=== PATIENT | female | born 1985 | race Caucasian/White ===

== ENCOUNTER 2022-10-05 12:45 | Outpatient (CLI) | payer OTHER | END 2022-10-05 13:36 | disposition home or self-care (01) | LOC: NST 12:45 | PROVIDERS: ATTEND Obstetrics & Gynecology Gynecology | DX: Z34.83 Encounter for supervision of other normal pregnancy, third trimester (principal) ==

== ENCOUNTER 2022-10-16 15:15 | Outpatient (CLI) | payer OTHER | END 2022-10-16 16:30 | disposition home or self-care (01) | LOC: NST 15:15 | PROVIDERS: ATTEND Obstetrics & Gynecology | DX: Z34.83 Encounter for supervision of other normal pregnancy, third trimester (principal) ==

== ENCOUNTER 2022-10-26 10:32 | Inpatient (IN) | payer OTHER ==
[~2022-10-26] VITALS: Ht 170.2 cm; Wt 132.0 kg
[2022-10-30] MEDS ORDERED: PRENATAL TABLE1 EAC1 PO (16:44)
[2022-11-02] MEDS ORDERED: ST. JOSEPH ASPI81 M2 (08:06)
[2022-11-02] MEDS ORDERED: LABETALOL HCL100 MG (08:06)
[2022-11-02] MEDS ORDERED: NORVASC2.5 MG (08:07)
== END 2022-11-03 13:03 | disposition home or self-care (01) | DRG 788 ==
LOC: LDR 10-30 13:03 → OB/GYN 10-31 15:00
PROVIDERS: ADMIT Obstetrics & Gynecology; ATTEND Obstetrics & Gynecology
PROC: 3E033VJ Introduction of Other Hormone into Peripheral Vein, Percutaneous Approach (ICD-10-PCS; 2022-10-30)
PROC: 3E0P7VZ Introduction of Hormone into Female Reproductive, Via Natural or Artificial Opening (ICD-10-PCS; 2022-10-30)
PROC: 4A1HXCZ Monitoring of Products of Conception, Cardiac Rate, External Approach (ICD-10-PCS; 2022-10-30)
PROC: 10D00Z1 Extraction of Products of Conception, Low, Open Approach (ICD-10-PCS; principal; 2022-10-31 15:15)
DX: O61.0 Failed medical induction of labor (principal); O36.8330 Maternal care for abnormalities of the fetal heart rate or rhythm, third trimester, not applicable or unspecified; Z3A.38 38 weeks gestation of pregnancy; Z37.0 Single live birth; Z20.822 Contact with and (suspected) exposure to COVID-19

== ENCOUNTER 2023-01-23 12:14 | Day surgery (SDC) | payer OTHER ==
[~2023-01-23 12:14] MED LIST: LABETALOL HCL100 MG; NORVASC2.5 MG; PRENATAL TABLE1 EAC1 PO; ST. JOSEPH ASPI81 M2
== END 2023-01-23 20:50 | disposition home or self-care (01) ==
LOC: EDBD → CIR.AMB 12:14
PROVIDERS: ATTEND Obstetrics & Gynecology
DX: N93.8 Other specified abnormal uterine and vaginal bleeding (principal); D25.0 Submucous leiomyoma of uterus; Z20.822 Contact with and (suspected) exposure to COVID-19; D25.9 Leiomyoma of uterus, unspecified

== ENCOUNTER 2023-08-22 10:30 | Outpatient (CLI) | payer OTHER | END 2023-08-22 10:38 | disposition home or self-care (01) | LOC: MAMO-SONO 10:30 | PROVIDERS: ATTEND Obstetrics & Gynecology Gynecology | DX: N63 Unspecified lump in breast (principal); N64.4 Mastodynia; N60.11 Diffuse cystic mastopathy of right breast ==